=== PATIENT | male | born 1965 | race Caucasian/White ===

== ENCOUNTER 2016-08-12 13:02 | Emergency (ER) | payer OTHER ==
[2016-08-12] MEDS ORDERED: OPTIRAY 350 100 ML VIAL HMH IV ONE (13:03)
[2016-08-12] MEDS ORDERED: SODIUM CHLORIDE 0.9% 1,000 ML ONE (15:23)
== END 2016-08-12 18:02 | disposition home or self-care (01) ==
LOC: ER 13:02
DX: K57.92 Diverticulitis of intestine, part unspecified, without perforation or abscess without bleeding (principal)
CPT/HCPCS: 36415; 74177; 80053; 81003; 83690; 85025; 96360; 96361